=== PATIENT | male | born 1955 | race Caucasian/White ===

== ENCOUNTER → 2020-09-06 09:03 | Outpatient (CLI) | payer MEDICARE, OTHER, SELFPAY ==
[2020-09-06 11:05] LABS: COVID19 -Nasal RAPID Negative (Negative)
== END ==
PROVIDERS: PCP Nurse Practitioner Family; Visit Provider Nurse Practitioner
DX: Z20.822 Contact with and (suspected) exposure to COVID-19 (principal)
CPT/HCPCS: 87635; C9803

== ENCOUNTER 2020-09-08 07:48 | Day surgery (SDC) | payer MEDICARE, OTHER, SELFPAY ==
[2020-09-08] VITALS (9 sets, daily range): BP systolic 96–145; BP diastolic 49–75; PULSE 54–108; RESP 12–16; TEMP 36.2–36.7; O2SAT 95–98; BMI 29.9
--- NOTE | 2020-09-08 | PATH_ITS ---
[facility] Accession Number: [id number] . 01 Material submitted: . foot - RIGHT THIRD INTERSPACE NEUROMA . 02 Diagnosis: Right Third Interspace Neuroma, Excision: Consistent with neuroma. No evidence of malignancy. MRV 09/11/2020 1259 Local . 02 Electronically signed: . Ricardo Pope MD, PhD, Pathologist NPI- [id number] . 01 Gross description: . Received in formalin, labeled right third interspace neuroma, is one piece of flores, fibrous tissue measuring 4.2 x 0.9 x 0.3 cm. The tissue is inked and entirely submitted in cassette A1, to be further sectioned at time of embedding. ([id number]) /FRR 09/09/2020 1605 Local . 02 Pathologist provided ICD-10: G57.63 . 02 CPT . 912097 Performed at: 01 [facility] [address] [facility], [place], [place] [id number] MD Waldo Lopez MD Phone: [phone] Performed at: 02 [facility] [address] [place], [place] [id number] MD Prema Jackson MD Phone: [phone]
[2020-09-08] MEDS: LACTATED RINGERS 1,000 ML 42 ML IV (08:36)
--- NOTE | 2020-09-08 08:36 | SUR.PREOP ---
IV rate adjusted to 42 ml per anesthesia protocol
--- NOTE | 2020-09-08 09:34 | PM.PREOP ---
Pre-operative Note COVID-19 COVID-19 status: Negative Result date/Date tested (Pos, Neg/Pending): 09/06/20 Interval Note History & Physical reviewed/Exam performed by Physician: Yes Changes to H&P: No
--- NOTE | 2020-09-08 09:35 | PM.OP.1 ---
Operative Date/Time/Diagnoses Date of procedure: 09/08/20 Time of procedure: 09:35 Pre-op diagnosis: Right third interspace neuroma Post-op diagnosis: same Procedure & Clinicians Procedure: Right third interspace neuroma excision Same procedure as scheduled: Yes Indications: Painful neuroma right 3rd interspace. Conservative measures failed to alleviate his pain and he wished to have surgical intervention at this time. We spoke of the risks, potential complications, as well as expected outcomes. Consent was signed. No contraindications to the procedure at this time. Surgeon: Olivia Guthrie Click Yes if Unassisted: Yes Anesthesia Type: MAC +/- and Sedation Operative Notes Closure Type: primary Specimen(s): other (Right 3rd interspace neuroma tissue) Estimated Blood Loss (mL): 10 Blood products transfused: none Tourniquet time (min): 16 Procedure in detail: The patient was brought to the operating room and placed on the operating table in the supine position. The tourniquet was placed about the right ankle. Well padded appropriately aligned. After mild IV sedation, local anesthesia was obtained to the right foot in the surgical area, and the foot and ankle were prepped and draped in the usual aseptic manner. The tourniquet was inflated. After check of anesthesia, an incision was made over the dorsal 3nd interspace of the right foot. The incision was deepened through subcutaneous tissues, being careful to identify and retract all vital neural and vascular structures. All bleeders were cauterized and ligated as necessary. The deep transverse intermetatarsal ligament was cleanly resected and this allowed visualization of the underlying interspace. After being careful to identify any tendinous and ligamentous structures as well as arterial, I was able to note the white shiny tissue of the nerve. It was a little enlarged and upon direct manipulation there was a response of reflexive tenderness. The nerve was cleanly resected at its most proximal aspect allowing it to retract into the musculature and the 2 distal locations as it fed into the digits. The area was irrigated with copious amounts of normal sterile saline. the tourniquet was deflated, a prompt hyperemic response was seen to the foot. The specimen was passed from the table and sent to pathology for identification. The interspace was verified to show no additional nerve tissue and 4-0 Vicryl was used to repair subcutaneous tissues. Dexamethasone Phosphate injection was performed to the location where the nerve had been resected proximally. Skin closure performed using 4-0 nylon. The area was dressed with a lightly compressive sterile dressing including Adaptic, 4x4s conform and Coban and stockinette with post op shoe. He was transferred to the PACU with vital signs stable and vascular status intact. Complications: none Post-operative Condition: stable Disposition: PACU Plan for aftercare: Following a period of postoperative monitoring, the patient will be discharged home on written and oral postoperative instructions including keeping the dressing dry and intact, avoiding significant ambulation on the foot, elevating the foot when seated at home. DVT prevention techniques have been reviewed. For the 1st postoperative visit the dressing will be changed and close to the 3rd postoperative week we will likely remove the sutures.
[2020-09-08] MEDS: CEFAZOLIN 2 GM/100 ML FROZ.PIGGY IV (09:41)
--- NOTE | 2020-09-08 10:08 | SUR.OPER ---
Supine on padded OR bed, head on pillow, arms secured on padded arm boards at <90 degrees abduction, legs uncrossed, safety belt at torso, tape over blanket over left lower leg. Right leg in control of the surgeon.
[2020-09-08] MEDS: DEXAMETHASONE 10 MG/ML VIAL IV (10:16)
[2020-09-08] MEDS: LIDOCAINE 2% INJ SDV 5 ML INJ (10:18)
[2020-09-08] MEDS: BUPIVACAINE 0.5% (PF) VIAL 30 ML INJ (10:18)
== END 2020-09-08 11:56 | disposition home or self-care (01) ==
PROVIDERS: PCP Nurse Practitioner Family; Referring Provider Nurse Practitioner Family; Visit Provider Podiatrist
PROC: (CPT 64782; principal; 2020-09-08 09:15)
DX: G57.81 Other specified mononeuropathies of right lower limb (principal); M77.51 Other enthesopathy of right foot and ankle; I25.10 Atherosclerotic heart disease of native coronary artery without angina pectoris; I10 Essential (primary) hypertension; E11.9 Type 2 diabetes mellitus without complications; E66.9 Obesity, unspecified; G47.33 Obstructive sleep apnea (adult) (pediatric); Z79.84 Long term (current) use of oral hypoglycemic drugs; Z68.32 Body mass index [BMI] 32.0-32.9, adult
CPT/HCPCS: 28080; J0690; J1100; J2250; J2704; J3010